=== PATIENT | female | born 1945 | race Caucasian/White ===

== ENCOUNTER 2018-02-26 08:40 | Day surgery (SDC) | payer MEDICARE, OTHER ==
[~2018-02-26] VITALS: Ht 167.6 cm; Wt 41.0 kg
[2018-02-26] MEDS ORDERED: LACTATED RINGERS 1,000 ML IV SCH (09:34)
[2018-02-26] MEDS ORDERED: PLEASE ENTER HEIGHT AND WEIGHT MC SCH (10:00)
[2018-02-26 10:05] VITALS: BP 128/78
[2018-02-26] MEDS ORDERED: VITAMINS (10:13)
[2018-02-26 10:25] LABS: BASOPHILS # (AUTO) 0.02 x10^3/uL (0-0.1); BASOPHILS % (AUTO) 0 % (0-1); EOSINOPHILS # (AUTO) 0.08 x10^3/uL (0-0.4); EOSINOPHILS % (AUTO) 1 % (1-7); LYMPHOCYTES # (AUTO) 2.49 x10^3/uL (1-3.4); LYMPHOCYTES % (AUTO) 33 % (22-44); MD NO; MEAN CORPUSCULAR HEMOGLOBIN 32.9 pg (27.0-34.8); MEAN CORPUSCULAR HGB CONC 33.3 g/dL (32.4-35.8); MEAN CORPUSCULAR VOLUME 98.9 fL (80-100); MEAN PLATELET VOLUME 9.7 fL (7.4-10.4); MONOCYTES # (AUTO) 0.65 x10^3/uL (0.2-0.8); MONOCYTES % (AUTO) 9 % (2-9); NEUTROPHILS # (AUTO) 4.28 x10^3/uL (1.8-6.8); NEUTROPHILS % (AUTO) 57 % (42-75); PLATELET COUNT 193 x10^3/uL (130-400); RED BLOOD COUNT 4.91 x10^6/uL (3.82-5.3); RED CELL DISTRIBUTION WIDTH 14.6 % (9.6-15.2)
[2018-02-26 10:35] LABS: ALBUMIN 3.6 g/dL (3.4-5.0); ANION GAP 7 mmol/L (5-15); CALCIUM 8.5 mg/dL (8.5-10.1); CHLORIDE 110 mmol/L (98-107)
[2018-02-26 10:41] LABS: ALANINE AMINOTRANSFERASE 26 U/L (12-78); ALKALINE PHOSPHATASE 76 U/L (45-117); BILIRUBIN,TOTAL 0.7 mg/dL (0.2-1.0); CREATININE 0.85 mg/dL (0.55-1.02); TOTAL PROTEIN 7.6 g/dL (6.4-8.2)
[2018-02-26 11:00] LABS: INTERNATIONAL NORMALIZED RATIO 0.94 (0.93-1.1); PROTHROMBIN TIME 9.8 Seconds (9.6-11.5)
[2018-02-26] MEDS ORDERED: FENTANYL PF 100 MCG/2ML ONE (12:14)
[2018-02-26] MEDS ORDERED: MIDAZOLAM 1 MG/ML, 2ML ONE (12:14)
[2018-02-26] MEDS ORDERED: SILVER NITRATE STICK TP ONE (12:19)
[2018-02-26] MEDS ORDERED: BUPIVACAINE/PF-EPI 0.25% 1:200K ONE (12:19)
[2018-02-26] MEDS ORDERED: EPHEDRINE 50 MG/ML, 1ML IM PRN (13:00)
[2018-02-26] MEDS ORDERED: ACETAMINOPHEN 325 MG TABLET PO PRN (13:00)
[2018-02-26] MEDS ORDERED: MIDAZOLAM 1 MG/ML, 2ML IV PRN (13:00)
[2018-02-26] MEDS ORDERED: ONDANSETRON ODT 8 MG PO PRN (13:00)
[2018-02-26] MEDS ORDERED: LABETALOL 5MG/ML, 20ML IV PRN (13:00)
[2018-02-26] MEDS ORDERED: MEPERIDINE/PF 25MG/0.5ML IVPush PRN (13:00)
[2018-02-26] MEDS ORDERED: PROMETHAZINE 25 MG SUPP PR PRN (13:00)
[2018-02-26] MEDS ORDERED: FENTANYL PF 100 MCG/2ML IV PRN (13:00)
[2018-02-26] MEDS ORDERED: ONDANSETRON 2MG/ML, 2ML IV PRN (13:00)
[2018-02-26] MEDS ORDERED: MORPHINE SULFATE 4 MG/ML, 1ML IVPush PRN (13:00)
[2018-02-26] MEDS ORDERED: OXYcodone 5 MG/5 ML ORAL.SOL UDC PO PRN (13:00)
[2018-02-26] MEDS ORDERED: PROMETHAZINE 25 MG/ML, 1ML IV PRN (13:00)
[2018-02-26] MEDS ORDERED: EPHEDRINE 50 MG/ML, 1ML IVPush PRN (13:00)
[2018-02-26] MEDS ORDERED: PROMETHAZINE 12.5 MG SUPP PR PRN (13:00)
[2018-02-26] MEDS ORDERED: PROPOFOL 10 MG/ML, 20ML ONE (13:18)
[2018-02-26] MEDS ORDERED: DEXAMETHASONE 4 MG/ML, 1ML ONE (13:18)
[2018-02-26] MEDS ORDERED: ONDANSETRON 2MG/ML, 2ML ONE (13:18)
[2018-02-26] MEDS ORDERED: ACETAMINOPHEN 650 MG/20.3 ML UDC ONE (13:47)
== END 2018-02-26 15:35 | disposition home or self-care (01) ==
LOC: OUT 08:40
PROVIDERS: ATTEND Specialist
DX: N76.5 Ulceration of vagina (principal); N76.0 Acute vaginitis; N95.0 Postmenopausal bleeding; N89.8 Other specified noninflammatory disorders of vagina; E78.5 Hyperlipidemia, unspecified; F17.200 Nicotine dependence, unspecified, uncomplicated; Z86.11 Personal history of tuberculosis; Z98.890 Other specified postprocedural states; Z79.899 Other long term (current) drug therapy
CPT/HCPCS: 36415; 57100; 58120; 80053; 85025; 85610; 85730; 88305; 93005; J1100; J2250; J2405; J2704; J3010